=== PATIENT | female | born 1960 | race Caucasian/White ===

== ENCOUNTER 2016-12-26 17:35 | Emergency (ER) | payer OTHER ==
[~2016-12-26] VITALS: Ht 162.6 cm; Wt 76.2 kg
[2016-12-26 19:25] LABS: ABSOLUTE BASOPHIL COUNT 0 /CUMM (0.0-0.2); ABSOLUTE EOSINOPHIL COUNT 0.2 /CUMM (0.0-0.7); ABSOLUTE GRANULOCYTE CT 3.9 /CUMM (1.4-6.5); ABSOLUTE LYMPH COUNT 2.2 /CUMM (1.2-3.4); BASOPHIL % 0.6 % (0.0-2.0); EOSINOPHIL % 2.8 % (0-5); MEAN CORPUSCULAR HGB 30.3 PG (27.0-31.0); MEAN CORPUSCULAR HGB CONC 33.7 G/DL (33.0-37.0); MEAN CORPUSCULAR VOLUME 89.9 FL (81.0-99.0); MEAN PLATELET VOLUME 10.2 FL (7.4-10.4); PLATELET COUNT 249 /CUMM (130-400); RBC DISTRIBUTION WIDTH 13.8 % (11.5-14.5); RED BLOOD CELL CT 4.45 /CUMM (4.20-5.40); WHITE BLOOD CELL COUNT 7.3 /CUMM (4.8-10.8)
--- NOTE | 2016-12-26 19:43 | ED CARDIAC/CP/PALPITATIONS ---
History of Present Illness General Chief Complaint: Chest Pain Stated Complaint: CP Source: patient, family, old records Exam Limitations: no limitations Vital Signs & Intake/Output Vital Signs & Intake/Output Vital Signs Date Time Temp Pulse Resp B/P Pulse O2 O2 Flow FiO2 Ox Delivery Rate 12/26 2037 96.3 64 20 147/72 95 Room Air 12/26 1745 98.4 76 16 176/84 97 Room Air Allergies Coded Allergies: MDX - Bee Venom (Bee Venom) (UNKNOWN 11/03/12) MDX - SULFA (sulfonamide) (SULFA (SULFONAMIDE)) (? WHEN YOUNG 11/02/12) Triage Note: PT C/O BURNING AND "DISCOMFORT" IN HER CHEST SINCE YESTERDAY. PT STATES SHE WAS COOKING YESTERDAY WHEN THE DISCOMFORT STARTED. PT TOOK ASPIRIN AND MYLANTA WITH NO RELIEF. TODAY DISCOMFORT PERSISTED, SHE WENT TO HER PRIMARY DR. ALLRED IN [facility]. ALSO FEELS ANXIETY AND SLIGHT SOB. EKG DONE, SINUS RHYTHM Triage Nurses Notes Reviewed? yes HPI: Yesterday evening patient was cooking when she felt a weird heaviness sensation lower substernally and epigastric area. The heaviness has been constant since yesterday evening and she episodically gets like a sharp jabbing sensation. Patient took 2 aspirin yesterday evening and the symptoms continued. Patient drank some cindy christina and then burped and the symptoms slightly improved however never went away. The symptoms are still there this morning and she went to work. 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 Patient had an EKG in the office which was unchanged but the patient was sent into the emergency department for evaluation. At its worst the heaviness is a 4 of 10 and is currently a 3 out of 10. There is no radiation. There is slight improvement when she burps but there are no aggravating factors. Patient denies any shortness of breath. Past History Travel History Traveled to [place] past 21 day No Medical History Any Pertinent Medical History? see below for history Cardiovascular: hypertension, CARDIOVASCULAR DISEASE RIGHT CAROTID ENDARDECTOM HIGH CHOLESTEROL Endocrine: RHEUMATOID ARTHRITIS PSORIATIC ARTHRITIS Surgical History Surgical History: RT CEA Psychosocial History Who do you live with Spouse What is your primary language Arabic Tobacco Use: Current Daily Use Daily Tobacco Use Amount/Type: => 5 Cigarettes daily ETOH Use: occasional use Illicit Drug Use: denies illicit drug use Family History Hx Contributory? Yes Review of Systems Review of Systems Constitutional: Reports: no symptoms. EENTM: Reports: no symptoms. Respiratory: Reports: no symptoms. Cardiovascular: Reports: see HPI, chest pain. GI: Reports: see HPI, abdominal pain. Genitourinary: Reports: no symptoms. Musculoskeletal: Reports: no symptoms. Skin: Reports: no symptoms. Neurological/Psychological: Reports: no symptoms. Hematologic/Endocrine: Reports: no symptoms. Immunologic/Allergic: Reports: no symptoms. All Other Systems: Reviewed and Negative Physical Exam Physical Exam General Appearance: well developed/nourished, alert, awake, anxious, mild distress Head: atraumatic, normal appearance Eyes: Bilateral: PERRL, EOMI. Ears, Nose, Throat: normal pharynx, normal ENT inspection, hearing grossly normal Neck: normal inspection, supple, full range of motion, NO JVD Respiratory: normal breath sounds, chest non-tender, no respiratory distress, lungs clear Cardiovascular: regular rate/rhythm, normal peripheral pulses Gastrointestinal: normal bowel sounds, soft, non-tender, no organomegaly Back: normal inspection, normal range of motion Extremities: normal inspection, normal capillary refill, normal range of motion, no edema Neurologic/Psych: no motor/sensory deficits, awake, alert, oriented x 3, normal gait, normal mood/affect Skin: intact, normal color, warm/dry Lymphatic: no anterior cervical angelica Core Measures ACS in differential dx? Yes ASA ordered for poss ACS? No-ACS ruled out Severe Sepsis Present: No Septic Shock Present: No Progress Differential Diagnosis: AMI, aortic dissection, cholecystitis, costochondritis, myocarditis, pericarditis, pneumonia, pneumothorax, pulmonary embolism, PUD/GERD Plan of Care: Orders Procedure Date/time Status Add-on Test (ER Only) 12/26 1942 Active D-DIMER 12/26 190 Complete TROPONIN LEVEL 12/26 1858 Complete COMPREHENSIVE METABOLIC PANEL 12/26 1858 Complete CBC WITHOUT DIFFERENTIAL 12/26 1858 Complete EKG 12/26 1735 Active Laboratory Tests 12/26/16 190: Anion Gap 9, Estimated GFR > 60, BUN/Creatinine Ratio 22.9, Glucose 77, Calcium 9.9, Total Bilirubin 0.4, AST 26, ALT 30, Alkaline Phosphatase 83, Troponin I < 0.01, Total Protein 6.7, Albumin 4.4, Globulin 2.3, Albumin/Globulin Ratio 1.9, D-Dimer < 200, CBC w Diff NO MAN DIFF REQ, RBC 4.45, MCV 89.9, MCH 30.3, RDW 13.8, MPV 10.2, Gran % 53.0, Lymphocytes % 29.5, Monocytes % 14.1 H, Eosinophils % 2.8, Basophils % 0.6, Absolute Granulocytes 3.9, Absolute Lymphocytes 2.2, Absolute Monocytes 1.0 H, Absolute Eosinophils 0.2, Absolute Basophils 0, PUBS MCHC 33.7 Initial ED EKG: NSR, no ST T wave changes Prior EKG: unchanged Comments: PT FEELS BETTER POST GI COCTAIL Departure Departure Disposition: HOME OR SELF CARE Condition: Stable Clinical Impression Primary Impression: Chest pain, unspecified Qualifiers: Chest pain type: other chest pain Qualified Code: R07.89 - Other chest pain Referrals: ENRIQUE RAMIREZ,ZACH Jerez (PCP/Family) Additional Instructions: REUTRN IF SYMPTOMS OR FOR ANY CONCERNS Departure Forms: Customer Survey General Discharge Information Critical Care Note Critical Care Note Critical Care Time: non-applicable
[2016-12-26 20:38] VITALS: BP 147/72
== END 2016-12-26 21:03 ==
LOC: ERH 17:35
PROVIDERS: Emergency Medicine
DX: R07.89 Other chest pain (principal)
CPT/HCPCS: 93005; 93010